=== PATIENT | female | born 1955 | race Caucasian/White ===

== ENCOUNTER 2024-06-05 07:40 | Outpatient (AMB) | payer OTHER, SELFPAY ==
--- NOTE | 2024-06-05 07:41 | MHC.OFFVIS ---
Vital Signs 06/05/24 07:54 Height 5 ft 1 in Weight 174 lb 6.17 oz BMI 32.9 BP 130/64 Blood Pressure Location Rt brachial Position Sitting Pulse 73 Pulse Source Pulse Oximeter Pulse Oximetry (%) 99 Oxygen Delivery Method Room Air Intake Visit Reasons: Joint pain Intake Note: Patient presents for joint pain. Feeling pain on my tempels, both cheek bones, both shoulders, back of neck, right hand, upper legs, both hips, buttocks, both knees and both feet. This started on 2007. I take Tizanidine and Pregabalin and they help the pain short term. Allergies No Known Allergies Allergy (Verified 06/05/24 07:50) Medication List - Last Reconciled 06/05/24 by Luis Galeana MD hydrochlorothiazide 25 mg PO DAILY lisinopril 20 mg PO DAILY omeprazole 40 mg PO DAILY pregabalin 150 mg PO BID tizanidine 4 mg PO BID HPI Comments Details: This is a 68-year-old female with fibromyalgia who presents for follow-up. She was diagnosed with fibromyalgia around 2007. She has been on gabapentin and Cymbalta in the past. She is currently on Lyrica 150 mg Twice daily. She states that she has diffuse pain everywhere. She walks for 30 minutes daily. She also [facility] some gentle [facility]. He has known arthritis of her neck and low back and was referred to physical therapy in the past which does help. But it helps short term only. She also goes to a chiropractor and does massages. [facility] Medical History (Updated 06/05/24 @ 08:23 by Luis Galeana MD) Subserosal leiomyoma of uterus Allergic rhinitis due to pollen Degenerative joint disease, multiple joints on both sides of body Osteoporosis Overweight Anxiety Hypomagnesemia Hyperlipidemia Fibromyalgia, primary Diverticular disease GERD (gastroesophageal reflux disease) Genitourinary syndrome of menopause Family History Mother Cancer Sister Multiple sclerosis Social History Household Members: Spouse Housing: House Alcohol intake: current Patient Tobacco Use Status: Former Tobacco user Tobacco use type: Cigarette Cigarette Packs Per Day: 0.5 Years Smoked: 4 years Review of Systems Const Reports fatigue and Reports weakness ENT Reports neck pain Musc Reports back pain, Reports myalgias, Reports arthralgias, Reports neck pain and Reports tingling Neuro Reports tingling and Reports weakness Endo Reports fatigue Physical Exam Const General: cooperative, healthy appearing and comfortable Nutritional Appearance: obese Orientation/consciousness: patient oriented x3 Limitations: no limitations HEENT Head: Yes normocephalic and Yes atraumatic Mouth: moist mucous membranes Resp Effort & Inspection: normal respiratory effort and able to speak in complete sentences Skin General skin exam: no rashes or lesions noted Neuro General: patient oriented x3 Extrem Other: Diffuse fibromyalgia tender points Mild osteoarthritic changes of both hands Normal nailfold capillaroscopy 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 Lyme screen negative? CRP normal? Phosphorus normal? CMP unremarkable except for mildly elevated potassium at 5.2? ESR normal? CBC unremarkable? Assessment & Plan Assessment & Plan (1) Fibromyalgia, primary: Comment: dx 2002, tried gabapentin Cymbalta and cyclobenzaprine Code(s): M79.7 - Fibromyalgia Category: Medical Plan: This is a 68-year-old female with fibromyalgia who presents for evaluation. Discussed management of fibromyalgia with patient. Is a noninflammatory, non-autoimmune central afferent processing disorder leading to a diffuse pain syndrome. I suggested that patient try to address her underlying psychiatric issues, anxiety/depression. I suggested evaluation by a therapist and/or a psychiatrist. Try to follow sleep hygiene practices. Discuss a referral for a sleep study from her PCP to rule out MARIE. Patient would benefit from increased physical activity, either through formal physical therapy or by joining a gym. Advised patient that she should start activity slowly and increase as tolerated. Patient walks for 30 minutes daily, advised patient to consider adding low-impact exercises such as, swimming, aqua therapy stretching, yoga. She was on Cymbalta, gabapentin and muscle relaxants in the past with variable effects Currently she is on Lyrica 150 mg Twice daily. Discussed with patient that Lyrica can be increased to 150 mg t.i.d. or 150 mg in the morning and 300 mg at night. Follow-up with PCP Plan I spent 30 minutes reviewing patient's chart, evaluating patient, counseling patient and documenting in the chart Coding Level of Care Code New Pt Level 3 (79216) Diagnoses Fibromyalgia, primary M79.7
[2024-06-05 07:54] VITALS: BP 130/64; PULSE 73; O2SAT 99; BMI 32.9
== END 2024-06-05 08:22 | disposition home or self-care (01) ==
PROVIDERS: Visit Provider Student in an Organized Health Care Education/Training Program
DX: M79.7 Fibromyalgia (principal)
CPT/HCPCS: 99203

== ENCOUNTER → 2024-06-05 07:40 | Outpatient (BNVA) | payer OTHER, SELFPAY | PROVIDERS: Visit Provider Student in an Organized Health Care Education/Training Program ==